=== PATIENT | female | born 1955 | race Caucasian/White ===

== ENCOUNTER → 2017-10-03 | Outpatient (CLI) | payer OTHER ==
--- NOTE | 2017-10-04 11:39 | MM ---
Reason for exam: screening (asymptomatic). Last mammogram was performed 3 years ago. History: Patient is postmenopausal. Family history of breast cancer in paternal grandmother, breast cancer in paternal cousin, and breast cancer in paternal aunt. Took unspecified hormones for 18 years. Physical Findings: A clinical breast exam by your physician is recommended on an annual basis and results should be correlated with mammographic findings. MG Screening Mammo w CAD Bilateral CC and MLO view(s) were taken. Prior study comparison: September 25, 2014, bilateral MG screening mammo w CAD. April 25, 2013, bilateral digital screening mammo w/CAD. The breast tissue is almost entirely fat. No significant changes when compared with prior studies. ASSESSMENT: Negative, BI-RAD 1 RECOMMENDATION: Routine screening mammogram of both breasts in 1 year.
== END | disposition home or self-care (01) ==
LOC: RADMAMWWP 08:13
PROVIDERS: ATTEND Family Medicine
DX: Z12.31 Encounter for screening mammogram for malignant neoplasm of breast (principal)
CPT/HCPCS: 77067

== ENCOUNTER → 2020-01-15 | Outpatient (CLI) | payer OTHER ==
--- NOTE | 2020-01-16 09:27 | MM ---
Reason for exam: screening (asymptomatic). Last mammogram was performed 2 years and 3 months ago. History: Patient is postmenopausal. Family history of breast cancer in paternal grandmother, breast cancer in paternal cousin, and breast cancer in paternal aunt. Took unspecified hormones for 18 years. Physical Findings: A clinical breast exam by your physician is recommended on an annual basis and results should be correlated with mammographic findings. MG Screening Mammo w CAD Bilateral CC and MLO view(s) were taken. Prior study comparison: October 03, 2017, bilateral MG screening mammo w CAD. September 25, 2014, bilateral MG screening mammo w CAD. There are scattered fibroglandular densities. There is no discrete abnormality. No significant changes when compared with prior studies. ASSESSMENT: Negative, BI-RAD 1 RECOMMENDATION: Routine screening mammogram of both breasts in 1 year.
== END | disposition home or self-care (01) ==
LOC: RADMAMWWP 08:50
PROVIDERS: ATTEND Family Medicine
DX: Z12.31 Encounter for screening mammogram for malignant neoplasm of breast (principal)
CPT/HCPCS: 77067

== ENCOUNTER → 2020-01-15 | Outpatient (CLI) | payer OTHER ==
--- NOTE | 2020-01-15 12:02 | BD ---
EXAMINATION TYPE: Axial Bone Density DATE OF EXAM: 01/15/2020 COMPARISON: 03/05/2010 CLINICAL HISTORY: Height: 59.5 IN Weight: 148 LBS FRAX RISK QUESTIONS: History of Fracture in Adulthood: YES RT HAND FX RISK FACTORS HISTORY OF: History of Wrist Fracture: YES LEFT When: AGE 40 Active: YES Postmenopausal woman: AGE 53 MEDICATIONS: Thyroid Medications: YES Which medication: Levothyroxine How Long: SINCE AGE 38 Osteoporosis Medications: NOT NOW Which medication: FOSAMAX How Lon YEAR Additional Medications: THYROID, VIT D, VIT A, MAGNESIUM, POTASSIUM EXAM MEASUREMENTS: Bone mineral densitometry was performed using the [employer] System. Bone mineral density as measured about the Lumbar spine is: ----- L1-L4(G/cm2): 1.020 T Score Values are as follows: ----- L2: -1.9 ----- L3: -0.9 ----- L4: -1.5 ----- L1-L4: -1.3 Bone mineral density has: Increased 3.1% since study of: 03/05/2010 Bone mineral density about the R hip (g/cm2): 0.768 Bone mineral density about the L hip (g/cm2): 0.816 T Score values are as follows: -----R Neck: -1.9 -----L Neck: -1.6 -----R Total: -1.1 -----L Total: -0.9 Bone mineral density has: Decreased -11.0% since study of: 03/05/2010 IMPRESSION: Osteopenia lumbar spine NOTE: T-SCORE=SD OF THE YOUNG ADULT MEAN.
== END | disposition home or self-care (01) ==
LOC: RADBDWWP 08:54
PROVIDERS: ATTEND Family Medicine
DX: M85.88 Other specified disorders of bone density and structure, other site (principal); Z78.0 Asymptomatic menopausal state
CPT/HCPCS: 77080

== ENCOUNTER 2020-01-25 10:16 | Day surgery (SDC) | payer OTHER ==
[2020-01-24 09:22] VITALS: BMI 28.3
[~2020-01-25 10:16] MED LIST: LACTATED RINGERS 1,000 ML IV SCH; LIDOCAINE 1% (10MG/ML) FOR IV START INTRADERMA PRN
[2020-01-25 10:43] VITALS: TEMP 97.6
[2020-01-25] MEDS ORDERED: PROPOFOL 10 MG/ML 20 ML VIAL IV ONE (11:15)
--- NOTE | 2020-01-25 11:18 | P.GSHP ---
History of Present Illness H&P Date: 01/25/20 Chief Complaint: Screening colonoscopy This 64-year-old female been safe for screening colonoscopy. Patient denies any significant GI complaints. Past Medical History Past Medical History: Thyroid Disorder History of Any Multi-Drug Resistant Organisms: None Reported Past Surgical History: Adenoidectomy, Tonsillectomy Additional Past Surgical History / Comment(s): LEFT ARM SURGERY Past Anesthesia/Blood Transfusion Reactions: No Reported Reaction, Motion Sickness Smoking Status: Former smoker - Past Family History Sister(s) Family Medical History: Cancer Father Family Medical History: Cancer Additional Family Medical History / Comment(s): LEUKEMIA Medications and Allergies Home Medications Medication Instructions Recorded Confirmed Type Cholecalciferol [Vitamin D3 (25 5,000 unit PO DAILY 01/24/20 01/24/20 History Mcg = 1000 Iu)] Levothyroxine Sodium [Levoxyl] 100 mcg PO DAILY 01/24/20 01/25/20 History Magnesium Oxide [Mag-Ox] 400 mg PO BID 01/24/20 01/24/20 History Potassium Gluconate 99 mg PO BID 01/24/20 01/24/20 History Vitamin A 10,000 unit PO DAILY 01/24/20 01/24/20 History Allergies Allergy/AdvReac Type Severity Reaction Status Date / Time codeine Allergy Itching Verified 01/25/20 10:43 Surgical - Exam Vital Signs Temp Pulse Resp BP Pulse Ox 97.6 F 60 18 160/69 100 01/25/20 10:42 01/25/20 10:42 01/25/20 10:42 01/25/20 10:42 01/25/20 10:42 - General well developed, well nourished, no distress - Eyes PERRL - ENT normal pinna - Neck no masses - Respiratory normal expansion - Cardiovascular Rhythm: regular - Abdomen Abdomen: soft, non tender Assessment and Plan Assessment: We'll perform screening colonoscopy.
--- NOTE | 2020-01-25 11:30 | P.OP ---
Date of Procedure: 01/25/20 Preoperative Diagnosis: Screening colonoscopy Postoperative Diagnosis: Diverticulosis Procedure(s) Performed: Colonoscopy Anesthesia: MAC Surgeon: Armin Stewart Pathology: none sent Condition: stable Disposition: PACU Description of Procedure: The patient's placed on the endoscopy table in the lateral position. She received IV sedation. Digital rectal exam was performed which revealed a few external hemorrhoids. The flexible colonoscope was then placed patient anus and passed throughout the colon. Scope could not be placed the cecum secondary to tortuous the bowel. Several times repeated his edition the colonoscope into the cecum. However this wasn't possible. Scope was withdrawn remainder the ascending colon transverse colon appeared normal. The descending and sigmoid colon there was moderate diverticular changes. Scope was then brought back the rectum and this appeared normal. Scope was withdrawn for patient.
[2020-01-25 11:35] VITALS: RESP 16
[2020-01-25 11:53] VITALS: BP 113/75; PULSE 66
== END 2020-01-25 12:05 | disposition home or self-care (01) ==
LOC: ORWHC2ENDO 10:16
PROVIDERS: ATTEND Surgery
DX: Z12.11 Encounter for screening for malignant neoplasm of colon (principal); Q43.9 Congenital malformation of intestine, unspecified; K57.30 Diverticulosis of large intestine without perforation or abscess without bleeding; E07.9 Disorder of thyroid, unspecified; Z88.5 Allergy status to narcotic agent; Z79.890 Hormone replacement therapy; Z79.899 Other long term (current) drug therapy; Z90.89 Acquired absence of other organs; Z87.891 Personal history of nicotine dependence; Z80.6 Family history of leukemia; Z80.9 Family history of malignant neoplasm, unspecified
CPT/HCPCS: J2704; G0121

== ENCOUNTER → 2022-06-03 | Outpatient (CLI) | payer MEDICARE ==
--- NOTE | 2022-06-03 16:31 | BD ---
EXAMINATION TYPE: Axial Bone Density DATE OF EXAM: 06/03/2022 COMPARISON: 01/15/2020 CLINICAL HISTORY: 66 years year old Female. ICD-10 CODE: Z780 Height: 59 IN Weight: 173 LBS FRAX RISK QUESTIONS: Family History (Parent hip fracture): YES MOTHER History of Fracture in Adulthood: LT WRIST AGE 40; LT TOE AGE 40; RT HAND AGE 60 RISK FACTORS HISTORY OF: History of Wrist Fracture: LT WRIST AGE 40 Active: YES Postmenopausal woman: AGE 53 MEDICATIONS: Thyroid Medications: YES Which medication: Levothyroxine How Lon YEARS Osteoporosis Medications: NOT NOW Which medication: Fosamax How Lon YEARS Additional Medications: VIT D, LEVOTHYROXINE, EXAM MEASUREMENTS: Bone mineral densitometry was performed using the [employer] System. Bone mineral density as measured about the Lumbar spine is: ----- L1-L4(G/cm2): 1.003 T Score Values are as follows: ----- L1: -1.1 ----- L2: -2.6 ----- L3: -1.2 ----- L4: -1.3 ----- L1-L4: -1.5 Bone mineral density has: Decreased -2.6% since study of: 01/15/2020 Bone mineral density about the R hip (g/cm2): 0.744 Bone mineral density about the L hip (g/cm2): 0.787 T Score values are as follows: -----R Neck: -2.1 -----L Neck: -1.8 -----R Total: -1.2 -----L Total: -1.1 Bone mineral density has: Decreased -2.4% since study of: 01/15/2020 FRAX%s: The graph provided illustrates a 29.8 chance for a major osteoporotic fx and a 4.0 chance for the hips probability for fx in 10 years time. IMPRESSION: Osteopenia (T Score between -2.5 and -1). There is slightly increased risk of fracture and the patient may be considered for treatment. Re-Screen 2-5 years. NOTE: T-SCORE=SD OF THE YOUNG ADULT MEAN.
--- NOTE | 2022-06-05 16:16 | MM ---
Reason for Exam: Screening (asymptomatic). Last mammogram was performed 2 year(s) and 5 month(s) ago. Patient History: Menarche at age 11. First Full-Term at age 22. Postmenopausal. Patient has history of breast feeding. Unspecified Hormone for 18 years until age 51. Paternal grandmother had breast cancer, age 59. Paternal cousin (Ninoska) had breast cancer. Paternal aunt had breast cancer, age 60. Risk Values: Lilliam 5 year model risk: 1.6%. NCI Lifetime model risk: 5.9%. Prior Study Comparison: 09/25/2014 Bilateral Screening Mammogram, [facility]. 10/03/2017 Bilateral Screening Mammogram, [facility]. 01/15/2020 Bilateral Screening Mammogram, [facility]. Tissue Density: There are scattered fibroglandular densities. Findings: Analyzed By CAD. There is no suspicious group of microcalcifications or new suspicious mass in either breast. Overall Assessment: Negative, BI-RAD 1 Management: Screening Mammogram of both breasts in 1 year. 1. Patient should continue monthly self breast exams. 2. A clinical breast exam by your physician is recommended on an annual basis. 3. This exam should not preclude additional follow-up of suspicious palpable abnormalities. Electronically signed and approved by: Tyron Holliday M.D. Radiologist
== END | disposition home or self-care (01) ==
LOC: RADBDWWP 13:04
PROVIDERS: ATTEND Family Medicine
DX: Z12.31 Encounter for screening mammogram for malignant neoplasm of breast (principal); M85.89 Other specified disorders of bone density and structure, multiple sites; Z78.0 Asymptomatic menopausal state; Z80.3 Family history of malignant neoplasm of breast
CPT/HCPCS: 77067; 77080